=== PATIENT | male | born 1995 | race Caucasian/White ===

== ENCOUNTER 2018-08-09 12:27 | Emergency (ER) | payer OTHER ==
[~2018-08-09] VITALS: Ht 162.6 cm; Wt 56.2 kg
[2018-08-09 13:11] VITALS: BP 131/75; Ht 162.6 cm; Wt 56.2 kg
== END 2018-08-09 15:27 | disposition left against medical advice (07) ==
LOC: ED 12:27
DX: Z53.21 Procedure and treatment not carried out due to patient leaving prior to being seen by health care provider (principal)

== ENCOUNTER 2019-10-14 11:15 | Emergency (ER) | payer OTHER ==
[~2019-10-14] VITALS: Ht 162.6 cm; Wt 64.4 kg
[2019-10-14 11:43] VITALS: Ht 162.6 cm; Wt 64.4 kg
[2019-10-14 15:07] LABS: BASOPHIL % 0.6 % (0-2); PLATELET COUNT 361 x10^3mcL (130-400); RED CELL DISTRIBUTION WIDTH 14.3 % (11.5-14.5)
[2019-10-14 16:02] LABS: CALCIUM 9.7 mg/dL (8.5-10.1); CARBON DIOXIDE 24.8 mmol/L (21-32); CHLORIDE SERUM 100 mmol/L (98-107); CREATININE SERUM 0.7 mg/dL (0.7-1.3); GFR1 > 60 mL/min; GLUCOSE SERUM 91 mg/dL (74-106); POTASSIUM SERUM 4.2 mmol/L (3.5-5.1); SODIUM SERUM 136 mmol/L (136-145)
[2019-10-14 16:06] LABS: ALBUMIN 4.6 g/dL (3.4-5.0); ALKALINE PHOSPHATASE 111 U/L (46-116); ALT/SGPT 65 U/L (16-63); AST/SGOT 149 U/L (15-37); BILIRUBIN TOTAL 0.6 mg/dL (0.20-1.00); MAGNESIUM 2.2 mg/dL (1.8-2.4)
[2019-10-14 16:07] LABS: TOTAL PROTEIN, SERUM 9.1 g/dL (6.4-8.2)
[2019-10-14 16:26] VITALS: BP 121/68
== END 2019-10-14 16:26 | disposition home or self-care (01) ==
LOC: ED 11:15
PROVIDERS: Specialist
DX: F41.9 Anxiety disorder, unspecified (principal)
CPT/HCPCS: 36415